=== PATIENT | female | born 1980 | race Caucasian/White ===

== ENCOUNTER 2019-01-15 06:54 | Inpatient (IN) | payer MEDICAID, OTHER ==
[2019-01-15] MEDS ORDERED: LACTATED RINGERS 1,000 ML IV.SOLN IV ONE (08:48)
[2019-01-15] MEDS ORDERED: ceFAZolin SODIUM 1 GM VIAL ONE (08:48)
[2019-01-15] MEDS ORDERED: ONDANSETRON HCL/PF 4 MG/ 2ML VIAL ONE (08:48)
[2019-01-15] MEDS ORDERED: LIDOCAINE HCL 2% PF 100MG/5ML VIAL IJ ONE (08:48)
[2019-01-15] MEDS ORDERED: LIDOCAINE HCL 1% PF 300MG/30ML VIAL ONE (08:48)
[2019-01-15] MEDS ORDERED: MIDAZOLAM HCL 2 MG/2 ML VIAL ONE (08:48)
[2019-01-15] MEDS ORDERED: HYDROmorphone HCL/PF 1 MG/ML VIAL ONE ×2 (08:48→11:20)
[2019-01-15] MEDS ORDERED: FENTANYL CITRATE/PF 250 MCG/5 ML INJ. ONE (08:48)
[2019-01-15] MEDS ORDERED: ENOXAPARIN SODIUM 40 MG/0.4 ML DISP.SYRIN SQ ONE (08:48)
[2019-01-15] MEDS ORDERED: LEVALBUTEROL NEB 1.25 MG/3 ML VIAL.NEB IH ONE (08:48)
[2019-01-15] MEDS ORDERED: SCOPOLAMINE HYDROBROMIDE 1.5MG/72HR PATCH TD ONE (08:48)
[2019-01-15] MEDS ORDERED: MEPERIDINE (NF) 100 MG/ML INJ ONE ×2 (08:48→11:31)
[2019-01-15] MEDS ORDERED: SUGAMMADEX SODIUM 200 MG/2 ML VIAL IV ONE (08:48)
[2019-01-15] MEDS ORDERED: SEVOFLURANE 250 ML LIQUID IH ONE (08:48)
[2019-01-15] MEDS ORDERED: SODIUM CHLORIDE IRRIG SOLUTION 3,000 ML IRRIG.SOLN IR ONE (08:48)
[2019-01-15] MEDS ORDERED: PROPOFOL 200 MG/20 ML VIAL IV ONE (08:48)
[2019-01-15] MEDS ORDERED: FAMOTIDINE 20 MG/2 ML VIAL ONE (08:48)
[2019-01-15] MEDS ORDERED: DEXAMETHASONE SODIUM PHOSPHATE 10 MG/ML VIAL ONE (08:48)
[2019-01-15] MEDS ORDERED: BUPIV. HCL 0.25% (2.5MG/ML)/EPI. (1:200,000) PF 30 ML VIAL IJ ONE (08:48)
[2019-01-15] MEDS ORDERED: ROCURONIUM BROMIDE 10 MG/ML 5ML VIAL ONE (08:48)
[2019-01-15] MEDS ORDERED: PROMETHAZINE HCL 25 MG in 0.9 % SODIUM CHLORIDE 50 ML IV PRN (12:39)
[2019-01-15] MEDS: ONDANSETRON HCL/PF 4 MG/ 2ML VIAL IVP PRN ×2 (13:09→19:34)
[2019-01-15] MEDS: MORPHINE SULFATE 4 MG/ML VIAL IVP PRN ×3 (13:09→19:34)
[2019-01-15] MEDS: 0.9 % SODIUM CHLORIDE 1,000 ML IV SCH ×2 (13:09→20:47)
[2019-01-15 13:39] VITALS: BMI 52.8
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
[2019-01-15] MEDS: OXYCODONE HCL 5 MG/5 ML SOLN UD CUP PO PRN ×2 (14:58→21:49)
[2019-01-15] MEDS: CEFAZOLIN SODIUM/DEXTROSE,ISO 1 GM/50 ML PIGGYBACK IV SCH (17:33)
[2019-01-15] MEDS ORDERED: 0.9 % SODIUM CHLORIDE 0 ML IV ONE (20:21)
[2019-01-15] MEDS: PREGABALIN 50 MG CAPSULE PO SCH (21:17)
[2019-01-15] MEDS: FAMOTIDINE 20 MG/2 ML VIAL IVP SCH (21:45)
[2019-01-16] MEDS: CEFAZOLIN SODIUM/DEXTROSE,ISO 1 GM/50 ML PIGGYBACK IV SCH (02:27)
[2019-01-16] MEDS: MORPHINE SULFATE 4 MG/ML VIAL IVP PRN (02:34)
[2019-01-16] MEDS: 0.9 % SODIUM CHLORIDE 1,000 ML IV SCH ×3 (04:37→18:47)
[2019-01-16] MEDS ORDERED: diphenhydrAMINE HCL 25 MG TABLET PO ONE ×2 (05:30→05:32)
[2019-01-16] MEDS: ONDANSETRON HCL/PF 4 MG/ 2ML VIAL IVP PRN (06:15)
[2019-01-16] MEDS: OXYCODONE HCL 5 MG/5 ML SOLN UD CUP PO PRN ×2 (06:27→11:24)
[2019-01-16] MEDS: PREGABALIN 50 MG CAPSULE PO SCH ×2 (09:34→20:22)
[2019-01-16] MEDS: ENOXAPARIN SODIUM 40 MG/0.4 ML DISP.SYRIN SQ SCH (09:35)
[2019-01-16] MEDS: FAMOTIDINE 20 MG/2 ML VIAL IVP SCH ×2 (09:51→20:18)
[2019-01-16] MEDS: KETOROLAC TROMETHAMINE 30 MG/1ML VIAL IVP PRN ×2 (11:24→20:22)
--- NOTE | 2019-01-16 12:15 | Discharge Summary ---
Discharge Summary - Discharge Sumary Home Medications: Ambulatory Orders Medication Instructions Recorded Albuterol Sulfate [Proair Hfa] 2 inh INH Q4-6 PRN 01/15/19 Baclofen 10 mg PO HS 01/15/19 Meloxicam 15 mg PO DAILY 01/15/19 Metformin HCl [Metformin HCl ER] 1,000 mg PO HS 01/15/19 Pregabalin [Lyrica] 100 mg PO BID 01/15/19 Allergies/Adverse Reactions: Allergies Allergy/AdvReac Type Severity Reaction Status Date / Time No Known Drug Allergies Allergy Verified 01/15/19 12:39 Patient Problems: Current Active Problems Problem Status Onset Hiatal hernia Acute Morbid obesity due to excess calories Acute Osteoarthritis of left hip Acute Peripheral neuropathy Acute Status post gastric surgery Acute Type 2 diabetes mellitus Acute
--- NOTE | 2019-01-16 12:19 | Inpatient Progress Note ---
Subjective - Required Recertification Statement I anticipate X number of days because-include discharge plan: 1 - Review of Systems Events since last encounter: Patient developed a rash to face and neck early this morning-unsure of cause- benadryl was given- patient denied any shortness of breath at that time. During rounds this afternoon patient was sitting up in chair with in the room. She was feeling much better- minimal nausea and minimal pain. She states that s he has been using incentive spirometer, walking frequently, and wearing SCDs while in bed. Dressings are dry and intact. General: Fatigue HEENT: Denies: Sinus Congestion, Sore Throat Pulmonary: Denies: Dyspnea, Cough Cardiovascular: Denies: Chest Pain, Palpitations Gastrointestinal: Nausea, Abdominal Pain. Denies: Vomiting Genitourinary: Denies: Dysuria Musculoskeletal: Denies: Back Pain Neurological: Weakness (Earlier in the morning- improving) Objective - Exam Vitals and I&O: Vital Signs Temp 97.5 F L 01/16/19 09:11 Pulse 77 01/16/19 11:28 Resp 18 01/16/19 09:11 BP 122/66 01/16/19 09:11 Pulse Ox 93 01/16/19 11:56 Intake & Output 01/15/19 01/16/19 01/16/19 23:59 11:59 23:59 Intake Total 941 424 9624 Output Total 1200 400 Balance -1010 -10 1000 Weight 126.8 kg Intake: IV 1000 right fa 1000 Oral 190 390 Output: Urine 1200 400 Other: Voiding Method Toilet # Voids 1 1 # Bowel Movements 0 General: Alert, Oriented to Person, Oriented to Place, Oriented to Time, Cooperative, No acute distress, Morbidly Obese HEENT: PERRLA, Mouth Mucous membr. moist/[place], Nose Mucous membr. moist/[place] Neck: Supple, +2 carotid pulse wo bruit Lungs: Clear to auscultation, Normal air movement, Speaks full Sentences Cardiovascular: Regular rate, Normal S1, Normal S2 Abdomen: Normal bowel sounds, Soft Extremities: Normal pulses, No tenderness/swelling Skin: Normal, [place], Warm, Dry, Other (dressing are dry and intact) Neurological: Normal gait, Normal speech, Strength Equal Bilat, Sensation intact Psych/Mental Status: Mental status NL, Mood NL, Appropriate Affect, Intact Judgment Assessment/Plan - Assessment/Plan (1) Status post gastric surgery Status: Acute Current Visit: Yes Plan: Will continue to have patient ambulate frequently in the [place], wear SCDs while in bed, frequent use of incentive spirometer, continue IVF until patient can take in sufficient oral intake- pt is tolerating po meds (2) Hiatal hernia Status: Acute Current Visit: Yes Plan: Will continue to monitor and treat nausea and vomiting- will continue to give IV pepcid (3) Morbid obesity due to excess calories Status: Acute Current Visit: Yes Plan: Will continue with gastric sleeve diet protocol (4) Type 2 diabetes mellitus Status: Acute Current Visit: Yes Qualifiers: Diabetes mellitus alf insulin use: without termite control technician use Diabetes mellitus complication status: with hyperglycemia Qualified Code(s): E11.65 - Type 2 diabetes mellitus with hyperglycemia Assessment: Blood sugars running less than 110 Plan: Will continue to hold Metformin (5) Osteoarthritis of left hip Status: Acute Current Visit: Yes Qualifiers: Osteoarthritis type: post-traumatic Qualified Code(s): M16.52 - Unilateral post-traumatic osteoarthritis, left hip Plan: will continue to treat pain, have patient ambulate (6) Peripheral neuropathy Status: Acute Current Visit: Yes Plan: will continue with lyrica
[2019-01-17] MEDS: 0.9 % SODIUM CHLORIDE 1,000 ML IV SCH (01:53)
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
[2019-01-17 08:09] VITALS: BP 140/93
[2019-01-17] MEDS: ENOXAPARIN SODIUM 40 MG/0.4 ML DISP.SYRIN SQ SCH (08:27)
[2019-01-17] MEDS: PREGABALIN 50 MG CAPSULE PO SCH (08:27)
[2019-01-17] MEDS: OXYCODONE HCL 5 MG/5 ML SOLN UD CUP PO PRN (08:30)
--- NOTE | 2019-01-19 14:55 | Operative Note ---
PREOPERATIVE DIAGNOSIS: 1. Morbid obesity. 2. Type 2 diabetes. POSTOPERATIVE DIAGNOSIS: 1. Morbid obesity. 2. Hiatal hernia. 3. Type 2 diabetes. PROCEDURES PERFORMED: 1. Laparoscopic vertical sleeve gastrectomy. 2. Hiatal hernia repair. 3. Upper gastrointestinal endoscopy. SURGEON: Navarro Millan M.D. INDICATIONS FOR PROCEDURE: Ms. Letitia Cardoso is a 38-year-old female who presented with features of morbid obesity and the above-listed comorbidities. The patient was noted to have a weight of 290 pounds with a BMI of 54. The patient was advised laparoscopic vertical sleeve gastrectomy and possible hiatal hernia repair. The patient showed understanding and agreed to proceed. DESCRIPTION OF PROCEDURE: After explaining to the patient in detail and informed consent was obtained, the patient was identified in the preoperative holding area. The patient was transferred to the operating room and was placed in supine position. Sequential compressive devices were placed for DVT prophylaxis. Preoperative antibiotics were given. After induction of anesthesia, the abdomen was prepped and draped in a sterile fashion. Through a left upper quadrant 1 cm incision, and using Optiview technique, the peritoneal cavity was entered and pneumoperitoneum was created. Thereafter, under direct vision, a 5 mm trocar was placed in the left midabdomen, a 15 mm trocar was placed in the right midabdomen, and another 5 mm trocar was placed in the right subcostal region. Through a 1 cm incision in the epigastrium, a Lu retractor was introduced and the left lobe of the liver was retracted. On initial inspection, the patient was noted to have a 4 cm sized hiatal hernia. Using pars flaccida technique, the right nadeem was identified. The sac was then dissected off the right nadeem. I continued dissection anteriorly. The phrenoesophageal membrane was divided. I continued dissection along the left nadeem. I continued the dissection superiorly to mobilize the sac as much as possible, and then I did a posterior dissection. Once this was completed, I then took down the gastroepiploic vessels along the greater curvature using Enseal. I continued superiorly. The short gastric vessels were taken down. The gastrophrenic ligament was divided and the Angle of His was mobilized fully. The posterior attachments of the stomach on the pancreas were released. Distally, the gastroepiploic vessels were taken down up to about 4 cm proximal to the pylorus. At this point, a #36 Japanese orogastric ViSiGi tube was inserted into the stomach and this was placed along the lesser curve. The stomach was suctioned out. I then performed an anterior cruroplasty using a [id number] Ethibond suture. Care was taken not to tighten the crura too much. I then anchored the stomach onto the right and left nadeem to prevent any recurrence of the hernia. Using the bougie as a guide, I then divided the stomach in a vertical fashion to create a loose sleeve around the #36 Japanese bougie. The first firing was directed outwards towards the greater curvature to prevent any narrowing of the incisura. Subsequent firings were directed towards the Angle of His to create a loose sleeve around this bougie. An upper GI endoscopy was performed at this point after removal of the bougie. The scope was introduced into the esophagus and was gradually advanced into the stomach. The sleeve appeared to be of adequate size. An air leak test was performed by insufflation of the stomach and by irrigation of fluid along the staple line. No air leak was noted. The scope was removed. The abdomen was then deflated. Absolute hemostasis was ensured. Approximately 10 mL of a lidocaine/Marcaine mix was instilled under the left hemidiaphragm. The incisions were closed with 4-0 Monocryl. The 15 mm port site incision was closed with 0 Vicryl using a fascial closure device. The skin was closed with 4-0 Monocryl. Prior to this, the sleeve gastrectomy specimen was removed. Approximately 10 mL of a lidocaine- Marcaine mix was injected into all the incisions. The patient was awakened from anesthesia and was transferred to the recovery room in stable condition. ESTIMATED BLOOD LOSS: Minimal. CONDITION OF THE PATIENT: Stable. FLUIDS GIVEN: Per Anesthesia note. SPECIMEN(S) SENT: Sleeve gastrectomy specimen. COMPLICATIONS: None. ANESTHESIA: General. Navarro Millan M.D. JONI/annabella @2134 @1439 MTDDuran
== END 2019-01-17 08:40 | disposition home or self-care (01) | DRG 621 ==
LOC: OPSURG 06:54 → SOUTH 12:33
PROVIDERS: ADMIT Nurse Practitioner Family; ATTEND Nurse Practitioner Family
PROC: 0DB64Z3 Excision of Stomach, Percutaneous Endoscopic Approach, Vertical (ICD-10-PCS; principal; 2019-01-15)
PROC: 0DJ08ZZ Inspection of Upper Intestinal Tract, Via Natural or Artificial Opening Endoscopic (ICD-10-PCS; 2019-01-15)
DX: E66.01 Morbid (severe) obesity due to excess calories (principal); Z68.43 Body mass index [BMI] 50.0-59.9, adult; E11.9 Type 2 diabetes mellitus without complications; K44.9 Diaphragmatic hernia without obstruction or gangrene; G89.18 Other acute postprocedural pain; R11.2 Nausea with vomiting, unspecified; G90.09 Other idiopathic peripheral autonomic neuropathy
CPT/HCPCS: 43235; 99231; 99238; J0690; J1170; J1650; J1885; J2001; J2175; J2250; J2270; J2405; J2704; J7614; 43775; A9270-GY; J7030; J7120; Q0163; S1016